=== PATIENT | male | born 1945 | race Two or more races ===

== ENCOUNTER 2020-07-09 11:54 | Day surgery (SDC) | payer OTHER | END 2020-07-09 15:35 | disposition home or self-care (01) | LOC: AMB-ENDOS 11:54 | PROVIDERS: ATTEND Colon & Rectal Surgery | DX: K62.89 Other specified diseases of anus and rectum (principal); Z20.822 Contact with and (suspected) exposure to COVID-19; K64.1 Second degree hemorrhoids ==